=== PATIENT | female | born 1990 | race Caucasian/White ===

== ENCOUNTER 2017-06-12 12:01 | Outpatient (CLI) | payer MEDICAID | END 2017-06-12 12:40 | disposition home or self-care (01) | LOC: LC 12:01 | PROVIDERS: ATTEND Obstetrics & Gynecology | PROC: 4A1HXCZ Monitoring of Products of Conception, Cardiac Rate, External Approach (ICD-10-PCS; principal; 2017-06-12) | DX: O24.419 Gestational diabetes mellitus in pregnancy, unspecified control (principal); Z3A.34 34 weeks gestation of pregnancy | CPT/HCPCS: 59025 ==

== ENCOUNTER 2017-07-12 05:39 | Inpatient (IN) | payer BC, MEDICAID ==
[2017-07-11 10:35] LABS: ABSOLUTE LYMPHOCYTES (AUTO) 2.2 10^3/uL (0.5-4.7); ABSOLUTE MONOCYTES (AUTO) 0.5 10^3/uL (0.1-1.4); ABSOLUTE NEUT (AUTO) 6.6 10^3/uL (1.7-8.2); BASOPHILS % (AUTO) 0.2 % (0-2); EOSINOPHILS % (AUTO) 0.5 % (0-6); HEMATOCRIT 32.6 % (36.0-47.0); HEMOGLOBIN 10.7 g/dL (12.0-15.5); LYMPHOCYTES % (AUTO) 23.3 % (13-45); MEAN CORPUSCULAR HEMOGLOBIN 25.5 pg (27.0-33.4); MEAN CORPUSCULAR HGB CONC 32.9 g/dL (32.0-36.0); MEAN CORPUSCULAR VOLUME 78 fl (80-97); MONOCYTES % (AUTO) 5.7 % (3-13); PLATELET COUNT 199 10^3/uL (150-450); RED CELL DISTRIBUTION WIDTH 17.5 % (11.5-14.0); SEGMENTED NEUTROPHILS % (AUTO) 70.3 % (42-78); TOTAL CELLS COUNTED % (AUTO) 100 %; WHITE BLOOD COUNT 9.4 10^3/uL (4.0-10.5)
[2017-07-11 10:35] LABS: APPEARANCE,URINE SLIGHTLY-CLOUDY; BILIRUBIN,URINE NEGATIVE (NEGATIVE); COLOR,URINE YELLOW; GLUCOSE, URINE NEGATIVE (NEGATIVE); KETONES,URINE NEGATIVE (NEGATIVE); LEUKOCYTE ESTERASE,URINE NEGATIVE (NEGATIVE); NITRITE,URINE NEGATIVE (NEGATIVE); PROTEIN,URINE NEGATIVE (NEGATIVE); URINE SPECIFIC GRAVITY 1.006; UROBILINOGEN,URINE NEGATIVE mg/dL (<2.0)
[2017-07-11 11:02] LABS: URINE AMPHETAMINES SCREEN NEGATIVE; URINE BARBITURATES SCREEN NEGATIVE; URINE BENZODIAZEPINES SCREEN NEGATIVE; URINE COCAINE SCREEN NEGATIVE; URINE MARIJUANA (THC) SCREEN NEGATIVE; URINE METHADONE SCREEN NEGATIVE; URINE PHENCYCLIDINE SCREEN NEGATIVE
[~2017-07-12 05:39] MED LIST: CEFAZOLIN 1 GM/D5W RTU 1 GM/50 ML RTUPB IV PRN; LACTATED RINGERS 1000 ML IV PRN; LIDOCAINE 0.5% INJ-PF (5 MG/ML) 50 ML SDV SUBCUT PRN
[2017-07-12] MEDS: AZITHROMYCIN 500 MG in DEXTROSE 5%-WATER 250 ML IV PRN ×2 (06:37→07:30)
[2017-07-12] MEDS ORDERED: PHENYLEPHRINE HCL INJ/PF 10 MG/1 ML SDV ONE (07:18)
[2017-07-12] MEDS ORDERED: FENTANYL CITRATE INJ/PF 100 MCG/2 ML AMPUL ONE (07:18)
[2017-07-12] MEDS ORDERED: MIDAZOLAM 2 MG/2 ML INJ ONE (07:18)
[2017-07-12] MEDS ORDERED: OXYTOCIN 10 UNIT/ML VIAL ONE (07:18)
[2017-07-12] MEDS ORDERED: CITRIC ACID/SODIUM CITRATE ORAL SOLN 15 ML UDCUP ONE (07:18)
[2017-07-12] MEDS ORDERED: ACETAMINOPHEN 100 ML IV ONE (07:19)
[2017-07-12] MEDS ORDERED: ONDANSETRON HCL INJ/PF 4 MG/2 ML SDV ONE (07:19)
[2017-07-12] MEDS ORDERED: MORPHINE SULFATE 10 MG/ML INJ IV PRN (08:05)
[2017-07-12] MEDS ORDERED: DIPHENHYDRAMINE HCL 50 MG/ML VIAL IV PRN (08:05)
[2017-07-12] MEDS ORDERED: PROMETHAZINE HCL INJ 25 MG/1 ML VIAL IV PRN (08:05)
[2017-07-12] MEDS ORDERED: FENTANYL CITRATE INJ/PF 100 MCG/2 ML AMPUL IV PRN ×3 (08:05)
[2017-07-12] MEDS ORDERED: OXYTOCIN/NORMAL SALINE 20 UNIT/1,000 ML RTUINJ INJ PRN (08:24)
[2017-07-12] MEDS ORDERED: DEXTROSE 5%-LACTATED RINGERS 1,000 ML IV PRN (08:26)
[2017-07-12] MEDS ORDERED: OXYCODONE-ACETAMINOPHEN 5-325 MG TABLET PO PRN (08:30)
[2017-07-12] MEDS ORDERED: HYDROMORPHONE HCL INJ/PF 2 MG/ML AMPULE IV PRN (08:30)
[2017-07-12] MEDS ORDERED: SIMETHICONE 80 MG TAB.CHEW PO PRN (08:30)
[2017-07-12] MEDS ORDERED: PROMETHAZINE HCL INJ 25 MG/1 ML VIAL IM PRN (08:30)
[2017-07-12] MEDS ORDERED: MEASLES,MUMPS&RUBELLA VACC/PF 0.5 ML VIAL SUBCUT PRN (08:30)
[2017-07-12] MEDS ORDERED: DIPH/PERTUSS(ACELL)/TETANUS VAC/PF 0.5 ML SYR (>=10YO) IM PRN (08:30)
[2017-07-12] MEDS ORDERED: ACETAMINOPHEN 325 MG TABLET PO PRN (08:30)
[2017-07-12] MEDS ORDERED: RINGERS SOLUTION,LACTATED 1,000 ML IV SCH (08:30)
[2017-07-12] MEDS ORDERED: KETOROLAC TROMETHAMINE INJ/PF 30 MG/1 ML SDV ONE (09:00)
[2017-07-12] MEDS ORDERED: OXYTOCIN/NORMAL SALINE 20 UNIT/1,000 ML RTUINJ ONE (09:00)
--- NOTE | 2017-07-12 09:39 | OPERATIVE REPORT E ---
Operative Report NAME: TERESITA HAMEED : 1990 AGE: 26Y DATE OF SURGERY: 07/12/2017 ROOM: 215 PREOPERATIVE DIAGNOSIS: IUP AT TERM WITH A PRIOR . POSTOPERATIVE DIAGNOSIS: IUP AT TERM WITH A PRIOR . PROCEDURE: Repeat low-transverse , delivery of a viable infant, Apgars of 8 and 9. SURGEON: Donnell BARRIENTOS M.D. ANESTHESIA: Spinal. ESTIMATED BLOOD LOSS: Less than 600 mL. TISSUE REMOVED OR ALTERED: Placenta. PROCEDURE: Patient was placed in a supine position and rolled onto her right side, prepped and draped in sterile fashion. Pfannenstiel incision was made through then existing Pfannenstiel eschar, and the incision extended through the subcutaneous tissue and fat *------*. Fascia sharply divided. Rectus muscle bluntly and sharply divided *------* with sharp dissection. Uterus nicked in the midline, extended bilaterally. Infant was then delivered through the uterine abdominal incision. Nose and mouth suctioned with a bulb syringe. Cord was clamped, and it was passed from the table. Placenta was manually extracted. The uterus was closed in 2 layers of 0 Vicryl, first in a running stitch and the second in a Lembert stitch, imbricating the first layer. Hemostasis was noted. Fascia was closed with 0 Vicryl. The skin was closed with absorbable subcutaneous dev. The patient tolerated the procedure well, was taken to the recovery room in good condition, and the infant to nursery in good condition. DICTATING PHYSICIAN: Donnell BARRIENTOS M.D. [id number] Y#: [id number] ID: [id number] JOB#: [id number] ACCT: [id number] cc:Donnell BARRIENTOS M.D. >
[2017-07-12] MEDS: PRENATAL VITAMIN W DHA CAPSULE PO SCH (13:27)
[2017-07-12] MEDS: DOCUSATE SODIUM 100 MG CAPSULE PO SCH ×2 (13:27→17:18)
[2017-07-12] MEDS ORDERED: KETOROLAC TROMETHAMINE INJ/PF 30 MG/1 ML SDV IV SCH (14:00)
[2017-07-12] MEDS: OXYCODONE-ACETAMINOPHEN 5-325 MG TABLET PO PRN ×2 (14:29→23:32)
[2017-07-12] MEDS: KETOROLAC TROMETHAMINE INJ/PF 30 MG/1 ML SDV IV SCH (17:21)
[2017-07-13] MEDS: KETOROLAC TROMETHAMINE INJ/PF 30 MG/1 ML SDV IV SCH ×3 (01:46→17:57)
[2017-07-13] MEDS: OXYCODONE-ACETAMINOPHEN 5-325 MG TABLET PO PRN ×2 (08:34→16:39)
[2017-07-13] MEDS: DOCUSATE SODIUM 100 MG CAPSULE PO SCH ×2 (10:25→18:09)
[2017-07-13] MEDS: PRENATAL VITAMIN W DHA CAPSULE PO SCH (10:25)
--- NOTE | 2017-07-13 10:38 | PDOC PROGRESS REPORT ---
Subjective-OB Subjective: Post Delivery Day: 26 year old. Denies any needs at this time repeat c section rhogam candidate +flatus bonding well withinfant ff@u-1 mild lochia ambulating well incision dry and intact anticipate d/c in Am Physical Exam (OB) Vital Signs: Temp Pulse Resp BP Pulse Ox 97.8 F 66 16 109/55 L 98 07/13/17 09:48 07/13/17 09:48 07/13/17 09:48 07/13/17 09:48 07/13/17 09:48 Intake & Output 07/12/17 07/13/17 07/14/17 06:59 06:59 06:59 Intake Total 3676 Output Total 2375 Balance 1301 Weight 99.79 kg - Dressing Removed: No Incision: Dressing - Lochia Lochia Amount: Small 10-25 ml Lochia Color: Rubra/Red - Abdomen Description: Soft, Round Hernia Present: No Fundal Description: Firm, Midline Fundal Height: u/u - u/2 Objective-Diagnostic Laboratory: 07/11/17 09:10
[2017-07-13] MEDS: IBUPROFEN 800 MG TABLET PO SCH ×2 (18:09→23:54)
[2017-07-14] MEDS: OXYCODONE-ACETAMINOPHEN 5-325 MG TABLET PO PRN ×2 (03:54→10:10)
[2017-07-14] MEDS: IBUPROFEN 800 MG TABLET PO SCH ×2 (06:21→11:43)
--- NOTE | 2017-07-14 08:47 | PDOC DISCHARGE SUMMARY ---
Final Diagnosis Discharge Date: 07/14/17 - doing well - Final Diagnosis (1) delivery delivered Is this a current diagnosis for this admission?: Yes (2) Is this a current diagnosis for this admission?: Yes Discharge Data - Discharge Medication Home Medications: Vit No.124/Iron/Folic [ Vitamin Tablet] 1 each PO DAILY Reason(s) for Admission: Ceasarean Section-Repeat Procedures: None Intrapartum Procedure(s): : Low Cervical, Transverse - Diagnosis Test Laboratory: Temp Pulse Resp BP Pulse Ox 97.9 F 64 16 115/58 L 100 07/14/17 04:00 07/14/17 04:00 07/14/17 04:00 07/14/17 04:00 07/14/17 04:00 07/11/17 07/11/17 09:05 09:10 RBC 4.20 Hgb 10.7 L Hct 32.6 L Urine Opiates Screen NEGATIVE - Discharge information/Instructions Discharge Activity: Activity As Tolerated, No Driving, No Lifting Over 10 Pounds , Pelvic Rest, Slowly Increase Activity, No tub bath, Walk Frequently Discharge Diet: As Tolerated Disposition: HOME, SELF-CARE Follow up with: [facility] in: 1, Weeks
[2017-07-14] MEDS: PRENATAL VITAMIN W DHA CAPSULE PO SCH (10:10)
[2017-07-14] MEDS: DOCUSATE SODIUM 100 MG CAPSULE PO SCH (10:10)
[2017-07-14 11:13] VITALS: BP 115/58
--- NOTE | 2017-07-24 11:02 | PDOC DELIVERY SUMMARY ---
Delivery Summary - Maternal Hx : II Hx # Term Pregnancies: 1 TU: 07/19/17 Gestational Age: 39 Ruptured Membranes: AROM Time of Rupture: 07:51 Fluids: Clear - Delivery Presentation: Vertex Heart Rate Monitoring: Done Pre-Operatively Support Person Present: Sid - NOÉ DURAN Location: OR : Scheduled Placenta: Within Normal Limits Placenta Description: DISCARDED PER MD Delivery of Placenta Date: 07/12/17 Delivery of Placenta Time: 07:52 - Medications Type of Anesthesia:: Spinal - Infant Assess and Care Baby 1 Female Delivery of Date: 07/12/17 Delivery of Time: 07:52 at 1 minute: 9 at 5 minutes: 9 Preprinted Number On Band: [id number] Skin to Skin: No To Nursery At: 07:59 Mode of Transport: Bassinet Delivery Weight: 3,900 Delivery Length: 21.5 in - Delivery Personnel Equipment Superintendent: CHRISTIAN Blake RN: Erum HUANG RN: TORREY POSEY MD: ALEXA BARRIENTOS
== END 2017-07-14 12:16 | disposition home or self-care (01) | DRG 766 ==
LOC: 2S 05:39
PROVIDERS: ADMIT Obstetrics & Gynecology Gynecology; ATTEND Obstetrics & Gynecology Gynecology
PROC: 4A1HXCZ Monitoring of Products of Conception, Cardiac Rate, External Approach (ICD-10-PCS; 2017-07-12)
PROC: 10D00Z1 Extraction of Products of Conception, Low, Open Approach (ICD-10-PCS; principal; 2017-07-12 07:45)
DX: O34.211 Maternal care for low transverse scar from previous cesarean delivery (principal); Z3A.39 39 weeks gestation of pregnancy; Z37.0 Single live birth
CPT/HCPCS: 1961; 36415; 59025; 80307; 81001; 82962; 85025; 86850; 86870; 86900; 86901; J0131; J0456; J0690; J1170; J1885; J2250; J2370; J2405; J2590; J3010; J3490; J7060; J7120